=== PATIENT | male | born 1975 | race American Indian/Alaskan Native ===

== ENCOUNTER 2017-10-17 16:34 | Emergency (ER) | payer OTHER, BC ==
[2017-10-17] MEDS ORDERED: Tdap Vaccine 0.5 ml Vial (10-64 yrs) IM ONE ×2 (17:35→17:53)
[2017-10-17] MEDS ORDERED: Lidocaine 1% Inj (20ml) IJ ONE (17:35)
[2017-10-17] MEDS ORDERED: Lidocaine Hydrochloride 5 ML INJ ONE (17:40)
--- NOTE | 2017-10-17 17:51 | ED PDOC ---
HPI: Wound Care - HPI Time Seen by Provider: 10/17/17 16:55 Chief Complaint (Nursing): Abnormal Skin Integrity Chief Complaint (Provider): Eyebrow Laceration History Per: Patient Exam Limitations: no limitations Onset/Duration Of Symptoms: Mins (prior to arrival) Current Symptoms Are (Timing): Still Present Additional Complaint(s): 42 year old male presents to the ED for evaluation s/p a work related accident. Patient reports that while using a sanding machine at work prior to arrival, he was hit in the head with the metal handle, sustaining a 2cm laceration to his right eyebrow. At this time, there is no active bleeding noted, and he denies any loss of consciousness, nausea, vomiting, dizziness, or headache. Tetanus not up to date. PMD: none provided Past Medical History Reviewed: Historical Data, Nursing Documentation, Vital Signs Vital Signs: Last Vital Signs Temp 98.6 F 10/17/17 16:48 Pulse 86 10/17/17 16:48 Resp 20 10/17/17 16:48 BP 122/77 10/17/17 16:48 Pulse Ox 97 10/17/17 16:48 - Medical History PMH: No Chronic Diseases - Surgical History Surgical History: No Surg Hx - Family History Family History: States: Unknown Family Hx - Social History Current smoker - smoking cessation education provided: Yes Alcohol: None Drugs: Denies - Allergies Allergies/Adverse Reactions: Allergies Allergy/AdvReac Type Severity Reaction Status Date / Time No Known Allergies Allergy Verified 10/17/17 16:48 Review of Systems ROS Statement: Except As Marked, All Systems Reviewed And Found Negative Gastrointestinal: Negative for: Nausea, Vomiting Skin: Positive for: Other (2cm laceration to right eyebrow, no active bleeding) Neurological: Negative for: Headache, Dizziness, Other (loss of consciousness) Physical Exam - Reviewed Nursing Documentation Reviewed: Yes Vital Signs Reviewed: Yes - Physical Exam Appears: Positive for: No Acute Distress Head Exam: Positive for: NORMOCEPHALIC. Negative for: ATRAUMATIC (2cm vertical laceration extending through right eyebrow with no active bleeding, surrounding erythema, or ecchymosis) Skin: Positive for: Normal Color, Warm, Dry Eye Exam: Positive for: Normal appearance Cardiovascular/Chest: Positive for: Regular Rate, Rhythm Respiratory: Positive for: Normal Breath Sounds. Negative for: Accessory Muscle Use, Respiratory Distress Neurologic/Psych: Positive for: Alert, Oriented (x3). Negative for: Motor/ Sensory Deficits - ECG O2 Sat by Pulse Oximetry: 97 (RA) Pulse Ox Interpretation: Normal Procedure: Wound Repair - Time Performed Time Performed: 18:20 - Time Out Time Out: Side verified, Site verified, Patient ID confirmed, Sterile procedures obs. - Procedure Procedure: Wound Repair: sutures - Consent Obtained Consent obtained: Verbal - Performed by Performed by: Mid-level Provider (Vern SIMS) - Indications Indication(s):: Laceration - Location Location:: Right, Eyebrow Dimensions Length cm: 2 - Anesthetic Technique Local/Regional Anesthetic:: Lidocaine 1% - Debris Debris:: None - Irrigated Irrigated with ml of normal saline: 2 - Complexity Complexity:: Simple (one layer) - Wound repair method Sutures:: # (running), Size (6:0 gut), Type (subcuticular) - Patient tolerated procedure Patient Tolerated Procedure:: Well Medical Decision Making Medical Decision Making: Time: 1734 Initial Impression: laceration wound care, tetanus update Initial Plan: --Tetanus booster --Lidocaine 1% 5ml IJ 1830 Pt tolerated procedure well with no complications. See procedure note. Dermabond applied to area. He was educated on further wound care and informed that his stitches will dissolve on their own, but to return to the ED with any complications. Scribe Attestation: Documented by Anitra Cordero, acting as a scribe for Rina Porras PA-C. Provider Scribe Attestation: All medical record entries made by the Scribe were at my direction and personally dictated by me. I have reviewed the chart and agree that the record accurately reflects my personal performance of the history, physical exam, medical decision making, and the department course for this patient. I have also personally directed, reviewed, and agree with the discharge instructions and disposition. Disposition - Clinical Impression Clinical Impression: Laceration - Disposition Disposition: Routine/Home Disposition Time: 19:27 Condition: STABLE Additional Instructions: sutures will self dissolve! Instructions: Laceration Repair Forms: [facility] (I[place]ic)
[2017-10-17 18:39] VITALS: BP 120/70; PULSE 80; RESP 18; TEMP 98.2
[2017-10-17 19:27] VITALS: O2SAT 97
== END 2017-10-17 18:38 | disposition home or self-care (01) ==
LOC: H.ER 16:34
DX: S01.121A Laceration with foreign body of right eyelid and periocular area, initial encounter (principal); W22.8XXA Striking against or struck by other objects, initial encounter; Y99.0 Civilian activity done for income or pay; F17.200 Nicotine dependence, unspecified, uncomplicated